=== PATIENT | male | born 1990 | race Caucasian/White ===

== ENCOUNTER 2019-04-22 23:02 | Emergency (ER) | payer OTHER ==
[~2019-04-22] VITALS: Ht 175.3 cm; Wt 90.7 kg
[2019-04-22 23:02] VITALS: BP 135/77
[2019-04-22] MEDS ORDERED: BACITRACIN OINT 500 UNITS/GM PKT TP ONE (23:15)
--- NOTE | 2019-04-22 23:26 | NUR ---
PT IN POLICE CUSTODY, UNABLE TO GIVE TDAP CONSENT. PT GAVE VERBAL CONSENT, WITNESSED BY KWAKU ANGUIANO Addendum: 04/22/19 at 2330 by [facility] PT IN POLICE CUSTODY, UNABLE TO GIVE SIGN TDAP CONSENT. PT GAVE VERBAL CONSENT, WITNESSED BY KWAKU ANGUIANO
--- NOTE | 2019-04-22 23:27 | NUR ---
PT TAKEN TO BED 10, RAD BEDSIDE
--- NOTE | 2019-04-22 23:35 | NUR ---
28 Y/O M BIB [place] [employer]. C/O L FOOT PAIN, 5/10 PAIN. ABRASION NOTED TO LT FOOT. SECONDARY C/O L SHOULDER PAIN. ERMD MADE AWARE OF PT STATUS.
[2019-04-22 23:42] VITALS: BP 135/77
--- NOTE | 2019-04-22 23:42 | NUR ---
Patient discharged with v/s stable. Written and verbal after care instructions given and explained. Patient verbalized understanding.PT AMBULATED WITH Police in custody. All questions addressed prior to discharge. Advised to follow up with PMD.
== END 2019-04-22 23:42 | disposition home or self-care (01) ==
LOC: EDSEX 23:02 → MED 23:02
DX: S40.012A Contusion of left shoulder, initial encounter (principal); S93.602A Unspecified sprain of left foot, initial encounter; W13.8XXA Fall from, out of or through other building or structure, initial encounter; Y93.89 Activity, other specified; Y92.89 Other specified places as the place of occurrence of the external cause; Y99.8 Other external cause status
CPT/HCPCS: 71045; 73620; 90471; 90715; 99283; Q0092